=== PATIENT | male | born 2000 | race Caucasian/White ===

== ENCOUNTER 2022-04-20 20:26 | Emergency (ER) | payer OTHER, BC ==
[~2022-04-20] VITALS: Ht 182.9 cm; Wt 102.5 kg
--- NOTE | 2022-04-21 07:50 | EKG ---
[facility] [address] [place], [place] [address] Signed Sinus tachycardia Otherwise normal ECG Confirmed by MAXIM FLOWERS MD ([id number] on 04/21/2022 7:49:49 AM Electronically Signed By: MAXIM FLOWERS MD 04/21/22 0750 PATIENT NAME: ZAFARHARRYAKILHA HILL Electrocardiogram DATE OF : 4 PHYSICIAN: MAXIM FLOWERS MD REPORT #: [id number] REPORT IS CONFIDENTIAL AND NOT TO BE RELEASED WITHOUT AUTHORIZATION
== END 2022-04-20 22:06 | disposition home or self-care (01) ==
LOC: ED 20:26
DX: S09.90XA Unspecified injury of head, initial encounter (principal); W55.12XA Struck by horse, initial encounter; Z88.0 Allergy status to penicillin
CPT/HCPCS: 93005; 93010; 99283-25